=== PATIENT | male | born 1970 | race Caucasian/White ===

== ENCOUNTER 2025-07-23 20:34 | Emergency (ER) | payer BC ==
[2025-07-23 20:46] VITALS: TEMP 98.4
[2025-07-23 20:56] LABS: Hematocrit 47.2 % (40.1-51.0); Hemoglobin 16.2 g/dL (13.7-17.5); Mean Corpuscular Hemoglobin 32.0 pg (25.7-32.2); Mean Corpuscular Hgb Concent. 34.3 g/dL (32.3-36.5); Platelet Count 173 x10^3/uL (163-337); Red Blood Count 5.06 x10^6/uL (4.63-6.08); White Blood Count 11.5 x10^3/uL (4.23-9.07)
[2025-07-23 21:04] LABS: Calcium 9.4 mg/dL (8.4-10.2); Carbon Dioxide 25.0 mmol/L (22-30); Creatinine 1 0.68 mg/dL (0.66-1.25); EST GLOMERULAR FILTRATION RATE 111.8 ML/MIN; Glucose 198.0 mg/dL (74-106); Potassium 4.4 mmol/L (3.5-5.1); SGOT/AST 29.0 U/L (17-59); SGPT/ALT 35.0 U/L (0-50); Total Protein 7.0 g/dL (6.3-8.2)
--- NOTE | 2025-07-23 21:14 | ERPHSYRPT ---
- History of Present Illness Time Seen by Provider: 07/23/25 21:13 Historian: patient Exam Limitations: no limitations Patient Subjective Stated Complaint: . Triage Nursing Assessment: . Physician History: Patient presents with 3-day history of left-sided chest pain. He has had chest pain in the past and had negative workup with stress test, echo. He has a history of high blood pressure, high cholesterol and diabetes and has not been on medication for the past 6 months since moving here from [place]. He is supposed to establish with Dr. Ramirez here soon. He has had a 1 month history of wheezing, cough, congestion. No fevers reported. He has been taking [id number] medications without improvement. He has a history of COPD and supposed to be on Trelegy and albuterol as needed. He reports mild leg swelling. No history of heart failure noted. Denies urinary symptoms. No abdominal pain. Timing/Duration: day(s) (3) Activities at Onset: none Associated Symptoms: cough, edema, No nausea, No vomiting, No palpitations, No shortness of breath, No fever Prior Chest Pain/Cardiac Workup: echocardiography, stress test Nitro Today/Relief: no nitro taken today Aspirin Treatment Today: 81 mg x 4, provided at home Allergies/Adverse Reactions: iodine Allergy (Intermediate, Verified 07/23/25 20:46) Difficulty Breathing methylprednisolone [From Depo-Medrol] Allergy (Intermediate, Verified 07/23/25 20:46) Hives povidone-iodine [From Betadine] Allergy (Intermediate, Verified 07/23/25 20:46) Difficulty Breathing Travel Risk - International Travel Have you traveled outside of the country in past 3 weeks: No - Emerging Infectious Disease Are you exhibiting symptoms associated with any current EIDs: No - Review of Systems All Other Systems: Reviewed and Negative - Past Medical History Pertinent Past Medical History: Yes Neurological History: No Pertinent History ENT History: No Pertinent History Cardiac History: High Cholesterol, Hypertension, Other Respiratory History: Bronchitis, COPD, Emphysema Endocrine Medical History: Diabetes Type II Musculoskeletal History: No Pertinent History GI Medical History: No Pertinent History History: No Pertinent History Psycho-Social History: No Pertinent History Male Reproductive Disorders: No Pertinent History Other Medical History: MURMER - Past Surgical History Past Surgical History: Yes Neuro Surgical History: No Pertinent History Cardiac: No Pertinent History Respiratory: No Pertinent History Gastrointestinal: No Pertinent History Genitourinary: No Pertinent History Musculoskeletal: Orthopedic Surgery Male Surgical History: No Pertinent History Other Surgical History: BAN KNEE SURGERY, CYST REMOVAL, - Social History Smoking Status: Current every day smoker How long have you smoked: 38 YEARS Exposure to second hand smoke: No Drug Use: none - Social Determinants of Health Will the patient participate in the screening: Yes Do you worry about a steady place to live?: No Do you have any problems with any of the following?: No known problems In the past 12 months,have you had to go without utilities?: No Transportation Issues: No Has anyone in your support network made you feel unsafe?: No Have you or anyone in your house had to go w/o enough food: No - Nursing Vital Signs Nursing Vital Signs: Initial Vital Signs Pulse Rate 79 07/23/25 20:37 Respiratory Rate 18 07/23/25 20:37 Blood Pressure 161/93 07/23/25 20:37 O2 Sat by Pulse Oximetry 97 07/23/25 20:37 Pain Scale Pain Intensity 0 - Physical Exam General Appearance: no apparent distress, obese Neck Exam: normal inspection, supple, full range of motion Respiratory Exam: airway intact, wheezing, No respiratory distress Cardiovascular Exam: regular rate/rhythm, normal heart sounds, capillary refill <2 sec, edema (trace b/l LE) Gastrointestinal/Abdomen Exam: soft, normal bowel sounds, No tenderness Neurologic Exam: alert, oriented x 3, cooperative Skin Exam: normal color, warm, dry, No rash SpO2 Interpretation: normal SpO2: 97 O2 Delivery: Room Air - Course Nursing assessment & vital signs reviewed: Yes EKG Interpreted by Me: RATE (77), Sinus Rhythm, NORMAL AXIS, NORMAL ST-T, Other (RI 207) Ordered Tests: Active Orders 24 hr Category Date Time Status EKG-ER Only STAT Care 07/23/25 20:50 Active IV Insertion STAT Care 07/23/25 20:50 Active CHEST 1 VIEW (PORTABLE) Stat Exams 07/23/25 20:51 Taken CBC W DIFF Stat Lab 07/23/25 20:55 Completed CMP Stat Lab 07/23/25 20:55 Completed LIPID PROFILE Stat Lab 07/23/25 21:00 Completed Manual Differential NC Stat Lab 07/23/25 20:55 Completed NT PRO BNPII Stat Lab 07/23/25 21:00 Completed TROPONIN Q2H Lab 07/23/25 21:00 Completed TROPONIN Q2H Lab 07/23/25 23:25 Completed TSH, 3RD Generation Stat Lab 07/23/25 21:00 Completed Urine Triage Profile Stat Lab 07/23/25 22:31 Completed Respiratory Therapy Assessment DAILY RT 07/23/25 22:37 Active Medication Summary Discontinued Medications Generic Name Dose Route Start Last Admin Trade Name Vic PRN Reason Stop Dose Admin Albuterol/Ipratropium 3 ml 07/23/25 21:50 07/23/25 22:36 Ipratropium/Albuterol Sulfate 3 Ml Ampul.Neb IH 07/23/25 21:51 3 ml STAT ONE Administration Albuterol/Ipratropium Confirm 07/23/25 22:02 Ipratropium/Albuterol Sulfate 3 Ml Ampul.Neb Administered 07/23/25 22:03 Dose 3 ml IH .STK-MED ONE Azithromycin Confirm 07/23/25 21:52 Azithromycin Inj Administered 07/23/25 21:53 Dose 500 mg IV .STK-MED ONE Azithromycin 500 mg/ Sodium 250 mls @ 250 mls/hr 07/23/25 21:33 07/23/25 23:01 Chloride IV 07/23/25 22:32 Infused STAT STA Infusion Sodium Chloride Confirm 07/23/25 21:53 Sodium Chloride 0.9% 250 Ml Administered 07/23/25 21:54 Dose 250 mls @ ud IV .STK-MED ONE Prednisone 60 mg 07/23/25 21:33 07/23/25 22:00 Prednisone 20 Mg Tablet PO 07/23/25 21:34 60 mg STAT ONE Administration Prednisone Confirm 07/23/25 21:52 Prednisone 20 Mg Tablet Administered 07/23/25 21:53 Dose 60 mg .ROUTE .STK-MED ONE Lab/Rad Data: Laboratory Result Diagrams 07/23/25 20:55 07/23/25 20:55 Laboratory Results 07/23/25 07/23/25 07/23/25 Range/Units 23:25 22:31 21:00 WBC (4.23-9.07) x10^3/uL RBC (4.63-6.08) x10^6/uL Hgb (13.7-17.5) g/dL Hct (40.1-51.0) % MCV (79.0-92.2) fL MCH (25.7-32.2) pg MCHC (32.3-36.5) g/dL RDW (11.6-14.4) % Plt Count (163-337) x10^3/uL MPV (9.4-12.4) fL Segmented Neutrophils (34.0-67.9) % Lymphocytes (Manual) (21.8-53.1) % Monocytes (Manual) (5.3-12.2) % Eosinophils (Manual) (0.8-7.0) % Atypical Lymphocytes % Platelet Estimate (NORMAL) RBC Morphology Sodium (135-145) mmol/L Potassium (3.5-5.1) mmol/L Chloride (98-107) mmol/L Carbon Dioxide (22-30) mmol/L Anion Gap (5-15) MEQ/L BUN (9-20) mg/dL Creatinine (0.66-1.25) mg/dL Estimated GFR ML/MIN Glucose (74-106) mg/dL Hemoglobin A1c 7.73 H (4.5-6.0) % Calcium (8.4-10.2) mg/dL Total Bilirubin (0.2-1.3) mg/dL AST (17-59) U/L ALT (0-50) U/L Alkaline Phosphatase (38-126) U/L Troponin I < 0.012 (0.000-0.033) ng/mL NT-Pro-B Natriuret Pep (<300) pg/mL Serum Total Protein (6.3-8.2) g/dL Albumin (3.5-5.0) g/dL Triglycerides (30-150) mg/dL Cholesterol (50-200) mg/dL LDL Cholesterol (30-100) mg/dL HDL Cholesterol (40-60) mg/dL Heart Disease Risk Ratio Free T4 (0.78-2.19) ng/dL TSH 3rd Generation (0.470-4.680) mIU/L Urine Opiates Level NEGATIVE (NEGATIVE) Ur Methadone NEGATIVE (NEGATIVE) Urine Barbiturates NEGATIVE (NEGATIVE) Ur Phencyclidine (PCP) NEGATIVE (NEGATIVE) Urine Amphetamine NEGATIVE (NEGATIVE) U Benzodiazepine Level NEGATIVE (NEGATIVE) Urine Cocaine NEGATIVE (NEGATIVE) Urine Marijuana (THC) NEGATIVE (NEGATIVE) 07/23/25 07/23/25 07/23/25 Range/Units 21:00 21:00 21:00 WBC (4.23-9.07) x10^3/uL RBC (4.63-6.08) x10^6/uL Hgb (13.7-17.5) g/dL Hct (40.1-51.0) % MCV (79.0-92.2) fL MCH (25.7-32.2) pg MCHC (32.3-36.5) g/dL RDW (11.6-14.4) % Plt Count (163-337) x10^3/uL MPV (9.4-12.4) fL Segmented Neutrophils (34.0-67.9) % Lymphocytes (Manual) (21.8-53.1) % Monocytes (Manual) (5.3-12.2) % Eosinophils (Manual) (0.8-7.0) % Atypical Lymphocytes % Platelet Estimate (NORMAL) RBC Morphology Sodium (135-145) mmol/L Potassium (3.5-5.1) mmol/L Chloride (98-107) mmol/L Carbon Dioxide (22-30) mmol/L Anion Gap (5-15) MEQ/L BUN (9-20) mg/dL Creatinine (0.66-1.25) mg/dL Estimated GFR ML/MIN Glucose (74-106) mg/dL Hemoglobin A1c (4.5-6.0) % Calcium (8.4-10.2) mg/dL Total Bilirubin (0.2-1.3) mg/dL AST (17-59) U/L ALT (0-50) U/L Alkaline Phosphatase (38-126) U/L Troponin I < 0.012 (0.000-0.033) ng/mL NT-Pro-B Natriuret Pep 58.8 (<300) pg/mL Serum Total Protein (6.3-8.2) g/dL Albumin (3.5-5.0) g/dL Triglycerides 207 H (30-150) mg/dL Cholesterol 216 H (50-200) mg/dL LDL Cholesterol 143 H (30-100) mg/dL HDL Cholesterol 39 L (40-60) mg/dL Heart Disease Risk Ratio 5.0 Free T4 1.45 (0.78-2.19) ng/dL TSH 3rd Generation 3.484 (0.470-4.680) mIU/L Urine Opiates Level (NEGATIVE) Ur Methadone (NEGATIVE) Urine Barbiturates (NEGATIVE) Ur Phencyclidine (PCP) (NEGATIVE) Urine Amphetamine (NEGATIVE) U Benzodiazepine Level (NEGATIVE) Urine Cocaine (NEGATIVE) Urine Marijuana (THC) (NEGATIVE) 07/23/25 07/23/25 Range/Units 20:55 20:55 WBC 11.5 H (4.23-9.07) x10^3/uL RBC 5.06 (4.63-6.08) x10^6/uL Hgb 16.2 (13.7-17.5) g/dL Hct 47.2 (40.1-51.0) % MCV 93.3 H (79.0-92.2) fL MCH 32.0 (25.7-32.2) pg MCHC 34.3 (32.3-36.5) g/dL RDW 12.5 (11.6-14.4) % Plt Count 173 (163-337) x10^3/uL MPV 12.3 (9.4-12.4) fL Segmented Neutrophils 51 (34.0-67.9) % Lymphocytes (Manual) 29 (21.8-53.1) % Monocytes (Manual) 5 L (5.3-12.2) % Eosinophils (Manual) 3 (0.8-7.0) % Atypical Lymphocytes 12 % Platelet Estimate NORMAL (NORMAL) RBC Morphology NORMAL Sodium 137 (135-145) mmol/L Potassium 4.4 (3.5-5.1) mmol/L Chloride 105 (98-107) mmol/L Carbon Dioxide 25 (22-30) mmol/L Anion Gap 11.1 (5-15) MEQ/L BUN 11 (9-20) mg/dL Creatinine 0.68 (0.66-1.25) mg/dL Estimated GFR 111.8 ML/MIN Glucose 198 H (74-106) mg/dL Hemoglobin A1c (4.5-6.0) % Calcium 9.4 (8.4-10.2) mg/dL Total Bilirubin 0.40 (0.2-1.3) mg/dL AST 29 (17-59) U/L ALT 35 (0-50) U/L Alkaline Phosphatase 53 (38-126) U/L Troponin I (0.000-0.033) ng/mL NT-Pro-B Natriuret Pep (<300) pg/mL Serum Total Protein 7.0 (6.3-8.2) g/dL Albumin 4.5 (3.5-5.0) g/dL Triglycerides (30-150) mg/dL Cholesterol (50-200) mg/dL LDL Cholesterol (30-100) mg/dL HDL Cholesterol (40-60) mg/dL Heart Disease Risk Ratio Free T4 (0.78-2.19) ng/dL TSH 3rd Generation (0.470-4.680) mIU/L Urine Opiates Level (NEGATIVE) Ur Methadone (NEGATIVE) Urine Barbiturates (NEGATIVE) Ur Phencyclidine (PCP) (NEGATIVE) Urine Amphetamine (NEGATIVE) U Benzodiazepine Level (NEGATIVE) Urine Cocaine (NEGATIVE) Urine Marijuana (THC) (NEGATIVE) - Progress Progress Note: This patient presents with left sided chest pain, with symptoms suggestive of noncardiac chest pain. History without high risk features (e.g., not substernal, no exertional component, not relieved with rest ). Recent negative stress test per patient. EKG without signs of active ischemia. HEART score: 3. Given the timing of pain to ER presentation, plan to send single troponin to evaluate for NSTEMI. Presentation not consistent with acute PE, pneumothorax, thoracic arotic dissection, cardiac effusion or tamponade. Plan: labs, troponin, EKG, CXR, ASA already taken at home, pain control, Azithro 500mg, Prednisone 60mg, Nebs, serial reassessment - Departure Departure Disposition: Home Clinical Impression: Chest pain, COPD exacerbation Condition: Stable Critical Care Time: No Referrals: ALEX RAMIREZ MD [Primary Care Provider, [facility]] - Follow up/PCP as directed Instructions: Chronic Obstructive Pulmonary Disease, Atypical Chest Pain Prescriptions: Azithromycin 250 mg PO DAILY 4 Days #4 tablet Metformin HCl 500 mg [Glucophage 500 MG] 2 tab PO BID 30 Days #30 tablet Levocetirizine Dihydrochloride 5 mg PO DAILY 30 Days #30 tablet Lisinopril/Hydrochlorothiazide [Lisinopril-Hctz 20-12.5 mg Tab] 1 each PO DAILY 30 Days #30 tablet predniSONE [Prednisone] 50 mg PO DAILY 5 Days #5 tablet Rosuvastatin Calcium 20 mg PO DAILY 30 Days #30 tablet Montelukast Sodium 10 mg [Singulair 10 MG] 10 mg PO HS 30 Days #30 tablet Fluticasone/Umeclidin/Vilanter [Treleespinoza Ellipta 100-62.5-25] 1 each IH DAILY 30 Days #1 blist Albuterol 8 gm Mdi Hfa [Ventolin Hfa MDI] 2 puff IH QIDPRN PRN #1 unit PRN Reason: Shortness Of Breath
[2025-07-23 21:16] LABS: NT PRO BNPII 58.8 pg/mL (<300); TROPONIN < 0.012 ng/mL (0.000-0.033)
[2025-07-23] MEDS ORDERED: DELTASONE 20 MG ONE (21:52)
[2025-07-23] MEDS ORDERED: ZITHROMAX IV IV ONE (21:52)
[2025-07-23] MEDS: DELTASONE 20 MG PO ONE (22:00)
[2025-07-23] MEDS: ZITHROMAX IV*** 500 MG in Sodium Chloride 0.9% 250 ML 250 ML IV STA (22:01)
[2025-07-23] MEDS ORDERED: DUONEB 0.5-3 MG/3 ml Neb IH ONE (22:02)
[2025-07-23 22:28] LABS: Cholesterol 216.0 mg/dL (50-200); LDL, DIRECT 143.0 mg/dL (30-100); TRIGLYCERIDE 207.0 mg/dL (30-150)
[2025-07-23] MEDS: DUONEB 0.5-3 MG/3 ml Neb IH ONE (22:36)
[2025-07-23 22:45] LABS: Total Cells Counted 100
[2025-07-23 22:49] LABS: Amphetamine,Urine NEGATIVE (NEGATIVE); Barbiturate,Urine NEGATIVE (NEGATIVE); Benzodiazepine,Urine NEGATIVE (NEGATIVE); Cocaine,Urine NEGATIVE (NEGATIVE); Methadone,Urine NEGATIVE (NEGATIVE); Opiate,Urine NEGATIVE (NEGATIVE); PCP,Urine NEGATIVE (NEGATIVE); THC,Urine NEGATIVE (NEGATIVE)
[2025-07-24 00:05] VITALS: BP 165/101; PULSE 73; RESP 18
[2025-07-24 00:07] VITALS: O2SAT 97
--- NOTE | 2025-07-24 08:15 | XRAY ---
Indication: Chest pain. Comparison: None Portable chest hyperinflated with minimal left lung base subsegmental atelectasis/scarring. Remaining heart and lungs normal. Bony thorax intact with minimal degenerative changes. No acute findings.
== END 2025-07-24 00:20 | disposition home or self-care (01) ==
LOC: ED 20:34
DX: J44.1 Chronic obstructive pulmonary disease with (acute) exacerbation (principal); R07.9 Chest pain, unspecified; I10 Essential (primary) hypertension; E11.9 Type 2 diabetes mellitus without complications; Z79.84 Long term (current) use of oral hypoglycemic drugs; Z79.52 Long term (current) use of systemic steroids; Z79.899 Other long term (current) drug therapy; Z72.0 Tobacco use